=== PATIENT | female | born 1970 | race Caucasian/White ===

== ENCOUNTER → 2016-11-27 | Outpatient (CLI) | payer BC ==
[~2016-11-27] MED LIST: MTR600X PO
--- NOTE | 2016-12-03 16:42 | MAMMOGRAPHY REPORT ---
BILATERAL DIGITAL SCREENING MAMMOGRAM TOMOSYNTHESIS WITH CAD: 11/27/2016 TECHNIQUE: Breast tomosynthesis in addition to standard 2D mammography was performed. Current study was also evaluated with a Computer Aided Detection (CAD) system. COMPARISON: Comparison is made to exams dated: 11/04/2012 mammogram, 11/09/2012 mammogram, and 013 stereotactic biopsy - [facility]. BREAST COMPOSITION: The tissue of both breasts is heterogeneously dense, which may obscure small ma sses. FINDINGS: There is a 1.7 cm focal asymmetry seen within the left superior posterior breast at appro ximately 12:00, which was not clearly present on the prior 2013 exam. Recommend spot compression to mosynthesis views and possible breast ultrasound for further evaluation. Additionally, there are gr ouped calcifications in the left upper outer quadrant, with a biopsy marker clip from prior stereota ctic biopsy seen superior and lateral to the calcifications. Review of the specimen radiograph perf ormed at the outside institution from stereotactic biopsy dated 11/18/2012 shows no clear calcificati ons present within the specimens. Recommend spot magnification views for further evaluation. The remainder of both breasts are stable compared to the prior exam, without suspicious masses, calc ifications, or areas of architectural distortion noted. IMPRESSION: ACR BI-RADS CATEGORY 0: INCOMPLETE EVALUATION: NEED ADDITIONAL IMAGING EVALUATION Left 12:00 breast focal asymmetry and left upper outer quadrant calcifications, for which additional imaging evaluation is recommended. The patient will be called to schedule an appointment. Approximately 10% of breast cancers are not detected with mammography. A negative mammographic repor t should not delay biopsy if a clinically suggestive mass is present. Svetlana Lake M.D. ah/:12/03/2016 15:51:54 Disaster Recovery Consultant: Jaclyn WALTER)(M), [facility] letter sent: Addl Imaging 0 BI-RADS Code: ACR BI-RADS Category 0: Incomplete Evaluation: Need Additional Imaging Evaluation
== END | disposition home or self-care (01) ==
LOC: C.MAMM 11:28
PROVIDERS: ATTEND Obstetrics & Gynecology
DX: Z12.31 Encounter for screening mammogram for malignant neoplasm of breast (principal); N64.89 Other specified disorders of breast

== ENCOUNTER → 2016-12-18 | Outpatient (CLI) | payer BC ==
--- NOTE | 2016-12-18 13:57 | MAMMOGRAPHY REPORT ---
UNILATERAL LEFT DIGITAL DIAGNOSTIC MAMMOGRAM TOMOSYNTHESIS AND TARGETED LEFT ULTRASOUND: 12/18/2016 CLINICAL HISTORY: Callback from screening mammogram for left breast asymmetry and left breast calcif ications. TECHNIQUE: Breast tomosynthesis in addition to standard 2D mammography was performed. Spot debbi shakeel CC and MLO 2-D and tomosynthesis images and spot magnification left CC and ML views were obtain ed. COMPARISON: Comparison is made to exams dated: 11/27/2016 mammogram - [facility], mammogram, 11/04/2012 mammogram, and 11/18/2012 stereotactic biopsy - [facility]. BREAST COMPOSITION: The tissue of the left breast is heterogeneously dense, which may obscure small masses. FINDINGS: The previously described asymmetry seen within the left 12:00 breast effaces on the addit ional spot compression views, with appearance of this region similar to the prior 2013 exam on the a dditional views. Spot magnification views demonstrate grouped punctate calcifications in the left u pper outer quadrant with a biopsy marker clip seen lateral to the calcifications. Given that the bi opsy marker clip is lateral to the calcifications and given no calcifications are clearly seen on th e outside specimen radiograph from the stereotactic biopsy performed in 2012, it is unclear if the c alcifications were adequately sampled at that time. However, the calcifications are stable on spot magnification views compared to the 2013 exam, and are considered benign given long-term stability a nd punctate morphology. Targeted ultrasound was performed of the left 12:00 breast in the region of the mammographic asymmet ry. Sonographically normal tissue is seen, without evidence of a mass or other suspicious sonograph ic abnormality. IMPRESSION: ACR BI-RADS CATEGORY 2: BENIGN, TARGETED ULTRASOUND ACR BI-RADS CATEGORY 2: BENIGN 1. The left breast asymmetry effaces to a baseline appearance on the additional views, without ean esponding sonographic abnormality evident. The asymmetry is benign and compatible with normal fibro glandular tissue. 2. Grouped punctate calcifications in the left upper outer quadrant are stable dating back to 2012, and are therefore considered benign. There is no mammographic or targeted sonographic evidence of malignancy. A 1 year screening mammogra m is recommended. The patient has been verbally notified of the results. Approximately 10% of breast cancers are not detected with mammography. A negative mammographic repor t should not delay biopsy if a clinically suggestive mass is present. Svetlana Lake M.D. ah/:12/18/2016 09:24:26 Objects Conservator: Jocelyn WALTER)(Mitra), [facility] letter sent: Normal 1/2 BI-RADS Code: ACR BI-RADS Category 2: Benign Ultrasound BI-RADS: ACR BI-RADS Category 2: Benign
== END | disposition home or self-care (01) ==
LOC: C.MAMM 08:25
PROVIDERS: ATTEND Obstetrics & Gynecology
DX: N64.89 Other specified disorders of breast (principal); R92.1 Mammographic calcification found on diagnostic imaging of breast

== ENCOUNTER → 2017-11-24 | Outpatient (CLI) | payer OTHER | END | disposition home or self-care (01) | LOC: C.PAPS 11:39 | PROVIDERS: ATTEND Physician Assistant | DX: Z01.419 Encounter for gynecological examination (general) (routine) without abnormal findings (principal) ==

== ENCOUNTER → 2017-12-23 | Outpatient (CLI) | payer OTHER ==
--- NOTE | 2017-12-23 15:19 | MAMMOGRAPHY REPORT ---
BILATERAL DIGITAL DIAGNOSTIC MAMMOGRAM TOMOSYNTHESIS WITH CAD AND TARGETED LEFT ULTRASOUND: 12/23/2017 CLINICAL HISTORY: The patient reports intermittent pain in the left upper outer quadrant for approxim ately one year. She denies any palpable lumps or other complaints. She has a history of a benign le ft breast stereotactic biopsy at an outside institution in 2012. TECHNIQUE: Breast tomosynthesis in addition to standard 2D mammography was performed. Current study was also evaluated with a Computer Aided Detection (CAD) system. Bilateral CC and MLO 2-D and tomosy nthesis images were obtained. COMPARISON: Comparison is made to exams dated: 12/18/2016 ultrasound, 12/18/2016 mammogram, 11/27/2016 m ammogram - [facility], 11/09/2012 mammogram, 11/04/2012 mammogram, and 11/18/2012 ster eotactic biopsy - [facility]. BREAST COMPOSITION: The tissue of both breasts is heterogeneously dense, which may obscure small mas ses. FINDINGS: A square marker strickland the site of pain pointed out by the patient in the left upper outer quadrant. A biopsy marker clip is seen within the left upper outer quadrant from prior benign stereo tactic biopsy, which underlies the square marker. Grouped calcifications within the left upper outer quadrant medial to the biopsy marker clip are stable dating back to the 2012 exam. Asymmetry seen w ithin the left 12:00 posterior breast is less prominent compared to the 2017 exam and is felt to repr esent normal fibroglandular tissue. The remainder of both breasts are stable compared to prior exams , without suspicious masses, calcifications, or areas of architectural distortion noted. Targeted ultrasound was performed of the area of pain pointed out by the patient, in the left breast at 2:00 approximately 7 cm from the nipple. No suspicious mass or other suspicious sonographic abnor mality is evident. IMPRESSION: ACR BI-RADS CATEGORY 2: BENIGN, TARGETED ULTRASOUND ACR BI-RADS CATEGORY 2: BENIGN No suspicious mammographic or sonographic abnormality at the site of intermittent left breast pain po inted out by the patient. There is no mammographic or targeted sonographic evidence of malignancy. Recommend clinical follow-up for left breast pain, and recommend routine bilateral screening mammogra ms in one year. The patient has been verbally notified of the results. Approximately 10% of breast cancers are not detected with mammography. A negative mammographic report should not delay biopsy if a clinically suggestive mass is present. Svetlana Lake M.D. ah/:12/23/2017 11:42:05 Medical Psychotherapist: Jaclyn WALTER)(Mitra), [facility] letter sent: Normal 1/2 BI-RADS Code: ACR BI-RADS Category 2: Benign Ultrasound BI-RADS: ACR BI-RADS Category 2: Benign
== END | disposition home or self-care (01) ==
LOC: C.MAMM 11:04
PROVIDERS: ATTEND Physician Assistant
DX: R92.8 Other abnormal and inconclusive findings on diagnostic imaging of breast (principal); N64.4 Mastodynia